=== PATIENT | female | born 1995 | race Caucasian/White ===

== ENCOUNTER 2019-04-15 00:04 | Emergency (ER) | payer OTHER ==
[~2019-04-15] VITALS: Ht 157 cm; Wt 50.3 kg
[~2019-04-15 00:04] MED LIST: ACET-2222 PO; AMOX500C2 PO; ARIP10TA2 PO; CEPH500C PO; CLIN60GE TP; Depo Provera; FLX10C PO; IBP800T PO; MINO100T3 PO; NAPR-243 PO; PENI500T PO; PHEN200T27 PO; SULF-222 PO
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
[2019-04-15 00:38] VITALS: BP 141/102
== END 2019-04-15 00:40 ==
LOC: EDUNIT# 00:04 → ER FS 00:09
DX: Z04.1 Encounter for examination and observation following transport accident (principal); F90.9 Attention-deficit hyperactivity disorder, unspecified type; R40.2142 Coma scale, eyes open, spontaneous, at arrival to emergency department; R40.2252 Coma scale, best verbal response, oriented, at arrival to emergency department; R40.2362 Coma scale, best motor response, obeys commands, at arrival to emergency department; F17.200 Nicotine dependence, unspecified, uncomplicated
CPT/HCPCS: 99283

== ENCOUNTER 2021-02-10 07:33 | Emergency (ER) | payer MEDICAID ==
[~2021-02-10] VITALS: Ht 165 cm; Wt 63.6 kg
--- NOTE | 2021-02-10 07:57 | ED Abdominal Pain ---
General Chief Complaint: - Reproductive Stated Complaint: KIDNEY PAIN,DEHYDRATION Nursing Triage Note: AMB TO ROOM WITH C/O KIDNEY PAIN ON R SIDE REPORTS THATS SHE USUALLLY KEENAN AT [facility] AND SHE USUALLY GET IV FLUIDS AND MEDS. SHE HAS THIS FREQUENT BECASUE SHE DRINKS A LOT OF ENGERY DRINKS Source of Information: Patient Exam Limitations: No Limitations History of Present Illness Date Seen by Provider: Feb 10, 2021 Time Seen by Provider: 07:43 Initial Comments Patient is a 25-year-old female who presents to the emergency department with a chief complaint of left low flank pain onset a couple of days ago. Patient states that she drinks "a lot of energy shots" and frequently gets dehydrated, causes her to have pain and infections. Patient states that she has had increasing dysuria over the course of the last week or so. She has been drinking cranberry juice to try and alleviate symptoms. Patient states that she has had no Tylenol, ibuprofen or aspirin to try and treat her pain. She denies nausea or vomiting. She has chronic diarrhea. She denies any abnormal vaginal discharge. States that she has Nexplanon. 9 months. Moving around makes the pain worse, nothing makes it any better. No fevers or chills. No other complaints of illness or injury. All other review of systems reviewed and negative except as stated. Timing/Duration: 1-2 Days Severity/Quality: Moderate, Cramping Location: LLQ (left flank) Radiation: No Radiation Allergies and Home Medications Allergies Coded Allergies: No Known Drug Allergies (Unverified , 05/26/09) Patient Home Medication List Home Medication List Reviewed: Yes Amoxicillin (Amoxicillin) 500 Mg Capsule, 2 EACH PO BID Prescribed by: LUC AZUL on 06/29/131901 Review of Systems Review of Systems Constitutional: see HPI EENTM: No Symptoms Reported Respiratory: No Symptoms Reported Cardiovascular: No Symptoms Reported Gastrointestinal: Abdominal Pain (left flank) Genitourinary: Burning Musculoskeletal: no symptoms reported Skin: no symptoms reported Psychiatric/Neurological: No Symptoms Reported All Other Systems Reviewed Negative Unless Noted: Yes Past Wmyuplf-Dgazry-Rweuqh Hx Patient Social History Tobacco Use?: Yes Substance use?: No Pt feels they are or have been: No Seasonal Allergies Seasonal Allergies: Yes Past Medical History Surgeries: Yes Section Respiratory: No Cardiac: No Neurological: No Reproductive Disorders: No Female Reproductive Disorders: Denies Sexually Transmitted Disease: No HIV/AIDS: No Gastrointestinal: Yes Chronic Constipation Musculoskeletal: No Cancer: No Psychosocial: Yes ADD/ADHD Integumentary: No Blood Disorders: No Adverse Reaction/Blood Tranf: No Family Medical History No Pertinent Family Hx Physical Exam Vital Signs Vital Signs - First Documented 02/10/21 07:37 Temp 35.9 Pulse 84 Resp 18 B/P (MAP) 5 (46) Pulse Ox 95 O2 Delivery Room Air Capillary Refill : Less Than 3 Seconds Height/Weight/BMI Height: 5'2" Weight: 110lbs. oz. 49.491526rb; 23.00 BMI Method:Stated General Appearance: WD/WN, no apparent distress Neck: normal inspection Respiratory: lungs clear, normal breath sounds, no respiratory distress, no accessory muscle use Cardiovascular: regular rate, rhythm Gastrointestinal: normal bowel sounds, soft, tenderness (left side/flank) Extremities: normal range of motion, normal inspection, normal capillary refill Back: CVA tenderness (L) Neurologic/Psychiatric: alert, normal mood/affect, oriented x 3 Skin: normal color, warm/dry Progress/Results/Core Measures Results/Orders Lab Results Laboratory Tests Test 02/10/21 07:56 Range/Units Urine Color NUSRAT H Urine Clarity SL CLOUDY Urine pH 6.0 5-9 Urine Specific [place] >=1.030 1.016-1.022 Urine Protein NEGATIVE NEGATIVE Urine Glucose (UA) NEGATIVE NEGATIVE Urine Ketones NEGATIVE NEGATIVE Urine Nitrite NEGATIVE NEGATIVE Urine Bilirubin NEGATIVE NEGATIVE Urine Urobilinogen 0.2 < = 1.0 MG/DL Urine Leukocyte Esterase NEGATIVE NEGATIVE Urine RBC (Auto) NEGATIVE NEGATIVE Urine RBC RARE /HPF Urine WBC RARE /HPF Urine Squamous Epithelial Cells 25-50 H /HPF Urine Crystals PRESENT H /LPF Urine Amorphous Sediment RARE TATA URATES H /LPF Urine Bacteria TRACE /HPF Urine Casts NONE /LPF Urine Mucus LARGE H /LPF Urine Culture Indicated NO My Orders Orders - CARLIN JIMENEZ MD Urine Bedside (02/10/21 07:50) Ua Culture If Indicated (02/10/21 07:50) Ibuprofen Tablet (Motrin Tablet) (02/10/21 08:15) Vital Signs/I&O 02/10/21 07:37 Temp 35.9 Pulse 84 Resp 18 B/P (MAP) 5/66 (46) Pulse Ox 95 O2 Delivery Room Air Blood Pressure Mean: 46 Progress Progress Note : Time: 08:17 Progress Note bedside urine test is negative. UA is remarkable for some increased specific gravity, mucous and sediment. No evidence of infection with bacteria, LE, nitrites. PAtient is not nauseated. able to take PO. treated in the ED with 600mg of ibuprofen for pain. advised to drink water/pedialyte to stay hydrated. Given good return precautions. Departure Impression Primary Impression: Abdominal pain Qualified Codes: R10.32 - Left lower quadrant pain Additional Impression: Mild dehydration Disposition: 01 HOME, SELF-CARE Condition: Stable Departure-Patient Inst. Decision time for Depature: 08:19 Referrals: [facility] (PCP/Family) Primary Care Physician Patient Instructions: Flank Pain (DC), Why Water Is Important to Health Add. Discharge Instructions: Take over the counter ibuprofen 600mg (3 tablets) every 6-8 hours with food for pain. Push oral fluids such as water, pedialyte or dilute gatorades. Try and sty away from "energy" drinks as they are caffeinated and caffeine is a diuretic. If you develop worse pain, vomiting or fever please come back to the Emergency Department for re-evaluation. Follow up with your primary care doctor. CARLIN JIMENEZ MD Feb 10, 2021 07:57
[2021-02-10 08:01] LABS: BILIRUBIN,URINE NEGATIVE (NEGATIVE); CLARITY,URINE SL CLOUDY; COLOR,URINE AMBER; GLUCOSE, URINE (UA) NEGATIVE (NEGATIVE); KETONES,URINE NEGATIVE (NEGATIVE); LEUKOCYTE ESTERASE ,URINE NEGATIVE (NEGATIVE); NITRITE,URINE NEGATIVE (NEGATIVE); PROTEIN,URINE NEGATIVE (NEGATIVE)
[2021-02-10 08:12] LABS: BACTERIA,URINE TRACE /HPF; WBC,URINE RARE /HPF
[2021-02-10 08:13] LABS: AMORPHOUS SEDIMENT,UR RARE AMOR URATES /LPF; SQUAMOUS EPITHELIAL CELL,UR 25-50 /HPF
[2021-02-10 08:14] LABS: RBC,URINE RARE /HPF
[2021-02-10] MEDS ORDERED: IBUPROFEN 600 MG (MOTRIN) TAB PO ONE (08:15)
[2021-02-10 08:36] VITALS: BP 5/66
== END 2021-02-10 08:35 | disposition home or self-care (01) ==
LOC: EDUNIT# 07:33 → ER 07:35
DX: R10.32 Left lower quadrant pain (principal); E86.0 Dehydration; Z32.02 Encounter for pregnancy test, result negative
CPT/HCPCS: 81000; 84703; 99283